=== PATIENT | female | born 1970 | race American Indian/Alaskan Native ===

== ENCOUNTER 2017-06-17 10:13 | Outpatient (CLI) | payer OTHER | END 2017-06-17 11:11 | disposition home or self-care (01) | LOC: NST 10:13 | DX: Z34.83 Encounter for supervision of other normal pregnancy, third trimester (principal) ==

== ENCOUNTER 2017-07-15 11:53 | Outpatient (CLI) | payer OTHER ==
[2017-07-20] MEDS ORDERED: PRENATAL TABLE1 EAC1 PO (08:02)
[2017-07-20] MEDS ORDERED: SYNTHROID50 MCG PO (08:03)
== END 2017-07-15 13:33 | disposition home or self-care (01) ==
LOC: NST 11:53
DX: Z34.03 Encounter for supervision of normal first pregnancy, third trimester (principal); Z3A.39 39 weeks gestation of pregnancy

== ENCOUNTER 2017-07-19 09:38 | Outpatient (CLI) | payer OTHER ==
[2017-07-20] MEDS ORDERED: PRENATAL TABLE1 EAC1 PO (08:02)
[2017-07-20] MEDS ORDERED: SYNTHROID50 MCG PO (08:03)
== END 2017-07-19 10:48 | disposition home or self-care (01) ==
LOC: NST 09:38
DX: Z34.83 Encounter for supervision of other normal pregnancy, third trimester (principal)